=== PATIENT | female | born 1960 | race African-American/Black ===

== ENCOUNTER 2018-08-02 21:21 | Emergency (ER) | payer MEDICAID, OTHER ==
[2018-08-02 21:48] LABS: Bilirubin Negative (Negative); Blood, Urine Negative (Negative); Clarity CLEAR (Clear); Glucose, Urine (Dipstick) 250 mg/dL (Negative); Leukocyte Negative (Negative); Nitrite Negative (Negative); Protein, Urine (Dipstick) 30 mg/dL (Neg-Trace); Specific Gravity, Urine 1.013 (1.002-1.036)
[2018-08-02 21:50] LABS: Bacteria/HPF None Seen HPF (None Seen); Hyaline Casts/LPF 0-3 HYALINE CAST LPF (0-3 Hyaline); Pathc Cast-AUWi Flag 0.87 (0-2.49); Squamous Epithelial 0-3 HPF (0-3); WBC/HPF 0-3 HPF (0-3)
[2018-08-02 22:15] LABS: #Basophils 0.1 thou/uL (0.0-0.2); #Lymphocytes 5.5 thou/uL (1.20-3.40); #Monocytes 1.1 thou/uL (0.11-0.59); %Basophils 0.4 % (0.0-1.0); %Eosinophils 0.2 % (0.0-10.0); %Lymphocytes 34.8 % (21.0-51.0); %Neutrophils 57.5 % (42.0-75.0); Hemoglobin 14.4 g/dL (12.0-16.0); Mean Corpuscular HGB CONC 33.1 g/dL (32.0-36.0); Mean Corpuscular Hemoglobin 26.9 pg (27.0-31.0); Mean Corpuscular Volume 81.4 fL (78.0-98.0); Mean Platelet Volume 6.7 fL (7.4-10.4); Platelet Count 445 thou/uL (130-400); RBC Distribution Width 12.2 % (11.5-14.5); Red Blood Cell (RBC) Count 5.35 mill/uL (4.20-5.40); White Blood Cell (WBC) Count 15.6 thou/uL (4.8-10.8)
[2018-08-02 22:35] LABS: ALT (SGPT) 19 U/L (8-55); AST (SGOT) 18 U/L (5-34); Albumin 3.6 g/dL (3.5-5.0); Alkaline Phosphatase 56 U/L (40-150); Anion Gap 12 mmol/L (10-20); BUN (Urea Nitrogen) 14 mg/dL (9.8-20.1); Bilirubin, Total 0.7 mg/dL (0.2-1.2); Calc. Creatinine Clearance 0 mL/min (70-130); Calcium 9.1 mg/dL (7.8-10.44); Carbon Dioxide 18 mmol/L (22-29); Chloride 103 mmol/L (98-107); Estimated GFR-MDRD Greater than 90; Globulin 4.2 g/dL (2.4-3.5); Glucose 108 mg/dL (70-105); Protein, Total 7.8 g/dL (6.0-8.3); Sodium 130 mmol/L (136-145)
[2018-08-02 22:38] LABS: Potassium 2.9 mmol/L (3.5-5.1)
[2018-08-02 22:45] LABS: Magnesium 1.7 mg/dL (1.6-2.6)
[2018-08-03] MEDS ORDERED: Fentanyl 100 MCG/2 ML VIAL ONE (00:11)
[2018-08-03] MEDS ORDERED: Magnesium 2 GM/50 ML BAG (IN WATER) ONE (00:12)
[2018-08-03] MEDS ORDERED: Potassium Chloride 20 MEQ TAB ONE (00:23)
[2018-08-03] MEDS ORDERED: Promethazine HCl 25 MG/ML VIAL ONE (00:31)
--- NOTE | 2018-08-03 08:20 | CT ---
PRELIMINARY REPORT/[facility]/EMERGENTY AFTER-HOURS PROCEDURE CT Chest With Intravenous Contrast EXAM DATE/TIME: 08/03/2018 12:50 AM CLINICAL HISTORY: 58 years old, female; Pain; Abdominal pain; Chest pain; Patient HX: Er 25; F58 presents to the ed C/O abdominal pain, chest pain. PT. Reports that she was seen at [facility] where she left ama. Reported that PT. Has had surgery in may in legs for "bad veins". Reported that family has concern for PT. 's past HX of drug abuse along with morphine treatment not controlling the pain. PT. Has HX of diabetes and HTN. TECHNIQUE: Axial computed tomography images of the chest with intravenous contrast. Coronal reformatted images were created and reviewed. COMPARISON: No relevant prior studies available. FINDINGS: Lungs: Bibasilar subsegmental atelectasis. Pleural space: Normal. No pneumothorax. No pleural effusion. Heart: Normal. No cardiomegaly. No pericardial effusion. Aorta: Normal. No aortic aneurysm. Lymph nodes: Small calcified left hilar lymph nodes. Bones/joints: Unremarkable. No acute fracture. Soft tissues: The soft tissues of the axilla, neck and chest wall are unremarkable. IMPRESSION: No evidence of acute cardiopulmonary disease. CT Abdomen and Pelvis With Intravenous Contrast TECHNIQUE: Axial computed tomography images of the abdomen and pelvis with intravenous contrast. Coronal reformatted images were created and reviewed. COMPARISON: No relevant prior studies available. FINDINGS: Lower thorax: No acute findings. ABDOMEN: Liver: Normal. No mass. Gallbladder and bile ducts: The gallbladder has been surgically removed. Pancreas: Normal. No ductal dilation. Spleen: Normal. No splenomegaly. Adrenals: Normal. No mass. Kidneys and ureters: Normal. No hydronephrosis. Stomach and bowel: Normal. No obstruction. No mucosal thickening. Appendix: No evidence of appendicitis. PELVIS: Bladder: Unremarkable as visualized. Reproductive: Unremarkable as visualized. ABDOMEN and PELVIS: Intraperitoneal space: Normal. No free air. No significant fluid collection. Bones/joints: No acute fracture. No dislocation. Soft tissues: Left anterior abdominal wall skin thickening and subcutaneous gas likely from recent in jection. Multiple probable injection granuloma in the gluteal subcutaneous fat. Vasculature: Normal. No abdominal aortic aneurysm. Lymph nodes: Normal. No enlarged lymph nodes. IMPRESSION: No evidence of acute intra-abdominal or pelvic pathology. Thank you for allowing us to participate in the care of your patient. Dictated and Authenticated by: Fabrice Benito MD 08/03/2018 1:27 AM Central Time ([place] & [place]) FINAL REPORT EMERGENT AFTER HOURS CT THORAX WITH IV COTNRAST: EMERGENT AFTER HOURS CT ABDOMEN AND PELVIS WITH IV CONTRAST: DATE: 08/03/2018. HISTORY: Chest pain and abdominal pain. FINDINGS/IMPRESSION: 1. Dependent atelectasis bilaterally. 2. Evidence of prior granulomatous disease with calcified left hilar lymph nodes and calcified granu brando in the left upper lobe. 3. Cholecystectomy. 4. Vascular calcification of the abdominal aorta and iliac arteries. Postsurgical changes right ing uinal region. There is ectasia of the distal common iliac artery. 5. Multiple injection granulomata within the gluteal regions bilaterally with focus of subcutaneous gas and mild stranding and skin thickening in the left anterior pelvis which may be related to recent injection site. 6. No acute findings are seen in the chest, abdomen, or pelvis. 7. Findings are in agreement with the preliminary report by [facility]. POS: JEVON
== END 2018-08-03 02:18 | disposition home or self-care (01) ==
LOC: ERS 21:21
DX: R10.9 Unspecified abdominal pain (principal); R11.10 Vomiting, unspecified; E11.9 Type 2 diabetes mellitus without complications; E78.00 Pure hypercholesterolemia, unspecified; I10 Essential (primary) hypertension; F41.9 Anxiety disorder, unspecified; F32.9 Major depressive disorder, single episode, unspecified; Z87.891 Personal history of nicotine dependence; Z79.4 Long term (current) use of insulin
CPT/HCPCS: 36415; 71260; 74177; 80053; 81003; 81015; 83690; 83735; 85025; 93005; 96365; 96366; 96375; J2550; J3010